=== PATIENT | female | born 1960 | race African-American/Black ===

== ENCOUNTER 2016-08-14 14:35 | Emergency (ER) | payer OTHER ==
[2016-08-14 14:58] VITALS: TEMP 98.8; BMI 25.9
[2016-08-14 17:05] LABS: URINE APPEARANCE CLEAR; URINE BILIRUBIN NEGATIVE (NEGATIVE); URINE BLOOD NEGATIVE (NEGATIVE); URINE COLOR LTYELLOW; URINE GLUCOSE (UA) 3+ (NEGATIVE); URINE KETONE TRACE (NEGATIVE); URINE LEUK ESTERASE NEGATIVE (NEGATIVE); URINE NITRITE NEGATIVE (NEGATIVE); URINE PROTEIN NEGATIVE (NEGATIVE); URINE UROBILINOGEN NEGATIVE E.U./dl (0.2-1.0)
[2016-08-14 17:08] LABS: BASOPHIL 0.6 % (0-2.0); EOSINOPHIL 1.1 % (0-4.5); MCHC 33.5 g/dl (32.0-36.0); MEAN CELL VOLUME 83.4 fl (80-96); MEAN PLT VOLUME 9.3 fl (7.5-11.1); NEUTROPHILS 58.6 % (42.8-82.8); PLATELET COUNT 297 K/MM3 (134-434); RDW 13.1 % (11.6-15.6); WHITE BLOOD COUNT 8.8 K/mm3 (4.0-10.0)
[2016-08-14 17:40] LABS: ANION GAP 11 (8-16); CALCIUM 9.8 mg/dL (8.5-10.1); CO2 29 mmol/L (21-32); COCKROFT - GAULT 87.8135; CREATININE 0.6 mg/dL (0.55-1.02); GLUCOSE,RANDOM 200 mg/dL (74-106); SGOT/AST 11 U/L (15-37); SGPT/ALT 23 U/L (12-78)
[2016-08-14 17:44] LABS: ALK PHOS 94 U/L (45-117); BILIRUBIN,TOTAL 0.5 mg/dL (0.2-1.0); TOT PROT 7.8 g/dl (6.4-8.2); TROPONIN I < 0.02 ng/ml (0.00-0.05)
[2016-08-14] MEDS ORDERED: SODIUM CHLORIDE 1,000 ML IV SCH (18:00)
[2016-08-14] MEDS ORDERED: hydrALAZINE HCL 20 MG/ML VIAL IVPUSH ONE (18:16)
[2016-08-14] MEDS ORDERED: hydrALAZINE HCL 20 MG/ML VIAL ONE (18:21)
--- NOTE | 2016-08-14 18:57 | PDOC ---
History of Present Illness <Chloe Tuttle - Last Filed: 08/14/16 22:40> - General History Source: Patient Exam Limitations: No Limitations - History of Present Illness Initial Comments: 08/14/16 19:13 Chief complaint: Dizziness since yesterday out of meds for one month History of present illness: Patient is a 56-year-old female with history of non- insulin-dependent diabetes, hypertension, hyperlipidemia here today complaining of dizziness that started yesterday and continues today. Pt. also had headache yesterday, none today. Patient reports that today she noticed that her right foot was not " not working as usual and I couldn't write my name as I usually could". Pt strength in rt. hand to open things or write. Pt. denies any dysphagia, facial drooping.Pt. also has been ataxic, " reports here "drifting not walking straight". Pt. is speaking clearly, denies headache, visual changes, dyphagia, difficulty speaking, no shortness of breath or abdominal pain. noticed her leaning to the rt. when trying to get dressed today. Pt. does not have any facial drooping, no asymetry of face, decreased ability to chew foods. reports that she has lost a lot of weight in last few months inspite of eating, he also has noted her to be forgetful. Pt. has not taken her medications for one month due to insurance issues. Pt. denies any falls. Pt. initally did not know the year when asked second time was correct, oriented to place. Pt. is urinating as usual. 08/14/16 19:44 08/14/16 19:53 08/14/16 20:09 08/17/16 16:13 Timing/Duration: constant, intermittent (since yesterday ) Severity: mild Associated Symptoms: reports: weakness (rt. lower leg/foot), other ( forgetfulness for a few months per ). denies: headaches, loss of appetite, shortness of breath <Renee Olmstead - Last Filed: 08/17/16 16:15> - General Chief Complaint: Lightheaded Stated Complaint: DIZZINESS Time Seen by Provider: 08/14/16 17:34 Past History <Chloe Tuttle - Last Filed: 08/14/16 22:40> - Past Medical History Diabetes: Yes (NIDDM) HTN: Yes Other medical history: hyperlipidemia - Psycho/Social/Smoking Cessation Hx Anxiety: No Suicidal Ideation: No Smoking History: Never smoked Have you smoked in the past 12 months: No Information on smoking cessation initiated: No Hx Alcohol Use: No Drug/Substance Use Hx: No Substance Use Type: None <Renee Olmstead - Last Filed: 08/17/16 16:15> - Past Medical History Allergies/Adverse Reactions: Allergies Allergy/AdvReac Type Severity Reaction Status Date / Time No Known Allergies Allergy Verified 08/14/16 14:54 Home Medications: Ambulatory Orders Glipizide [Glipizide ER] 10 mg PO DAILY 10/23/14 Ibuprofen [Motrin] 600 mg PO TID #20 tablet 10/23/14 Metformin HCl [Metformin HCl ER] 1,000 mg PO DAILY 10/23/14 Montelukast Na [Singulair -] 10 mg PO HS 10/23/14 Simvastatin [Zocor -] 20 mg PO DAILY 10/23/14 Sitagliptin Phosphate [Januvia -] 100 mg PO DAILY 10/23/14 Hydrochlorothiazide [Hctz -] 25 mg PO DAILY #30 tablet 08/15/16 Review of Systems - Review of Systems Able to Perform ROS?: Yes Constitutional: Yes: Weakness (rt. lower leg/foot since today) HEENTM: No: Symptoms Reported Respiratory: No: Symptoms reported Cardiac (ROS): No: Symptoms Reported ABD/GI: No: Symptoms Reported : Yes: Symptoms Reported Musculoskeletal: No: Symptoms Reported Integumentary: No: Symptoms Reported Neurological: Yes: Tingling (rt. side of face today), Weakness (rt. leg/foot), Dizziness (since yesterday). No: Unsteady Gait, Ataxia <Renee Olmstead - Last Filed: 08/17/16 16:15> *Physical Exam - Vital Signs Last Vital Signs Temp Pulse Resp BP Pulse Ox 98.8 F 93 H 21 130/81 98 08/14/16 14:54 08/14/16 22:33 08/14/16 22:33 08/14/16 22:33 08/14/16 22:33 <Chloe Tuttle - Last Filed: 08/14/16 22:40> - Vital Signs Last Vital Signs Temp Pulse Resp BP Pulse Ox 98.8 F 100 H 20 190/95 100 08/14/16 14:54 08/14/16 18:16 08/14/16 18:16 08/14/16 18:16 08/14/16 18:16 - Physical Exam General Appearance: Yes: Appropriately Dressed HEENT: positive: EOMI, LESLIE, TMs Normal, Other (no gag reflex (with tongue blade touching posterior tongue area) ). negative: Pharyngeal Erythema, Tonsillar Exudate, Tonsillar Erythema, Nasal Congestion, Rhinorrhea, Excessive drooling Neck: negative: Lymphadenopathy (R), Lymphadenopathy (L) Respiratory/Chest: positive: Lungs Clear, Normal Breath Sounds. negative: Chest Tender, Respiratory Distress Cardiovascular: positive: Regular Rhythm, Regular Rate, S1, S2 Vascular Pulses: Dorsalis-Pedis (R): 4+ Extremity: positive: Normal Capillary Refill, Normal Inspection. negative: Normal Range of Motion (rt. foot unable to dorsiflex and hyperextend as quickly as left side ), Swelling Integumentary: positive: Normal Color Neurologic: positive: field instructor II-XII NML intact, Alert, Normal Response, Respond to painful stimul (b/l legs ), Finger to Nose, Other (cranial nerves grossly intact except for (no gag reflex noted with tongue blade touching back of throat , b/l hand concrete rod buster equal, negative romberg). negative: Fully Oriented (oriented to day not date, year and place), Motor Strength 5/5 (rt. foot/leg), Responsive , EOM Palsy, Facial Droop, Numbness, Sensory Deficit Deep Tendon Reflexes: Ankle (L): 3+, Ankle (R): 3+, Knee (L): 3+, Knee (R): 3+ <Renee Olmstead - Last Filed: 08/17/16 16:15> ED Treatment Course - LABORATORY CBC & Chemistry Diagram: 08/14/16 16:40 08/14/16 16:40 - ADDITIONAL ORDERS Additional order review: Laboratory Results 08/14/16 08/14/16 17:00 16:40 Sodium 136 Potassium 4.2 Chloride 96 L Carbon Dioxide 29 Anion Gap 11 BUN 19 H Creatinine 0.6 Creat Clearance w eGFR > 60 Random Glucose 200 H D Calcium 9.8 Total Bilirubin 0.5 D AST 11 L D ALT 23 Alkaline Phosphatase 94 D Creatine Kinase 38 Troponin I < 0.02 Total Protein 7.8 Albumin 4.0 Urine Color Ltyellow Urine Appearance Clear Urine pH 6.0 Ur Specific [place] 1.021 Urine Protein Negative Urine Glucose (UA) 3+ H Urine Ketones Trace H Urine Blood Negative Urine Nitrite Negative Urine Bilirubin Negative Urine Urobilinogen Negative Ur Leukocyte Esterase Negative 08/14/16 16:40 RBC 5.59 H MCV 83.4 MCHC 33.5 RDW 13.1 MPV 9.3 Neutrophils % 58.6 D Lymphocytes % 35.5 Monocytes % 4.2 Eosinophils % 1.1 Basophils % 0.6 - Medications Given in the ED: ED Medications Discontinued Medications Generic Name Dose Route Start Last Admin Trade Name Freq PRN Reason Stop Dose Admin Hydralazine HCl 10 mg 08/14/16 18:16 08/14/16 18:21 Apresoline Injection - IVPUSH 08/14/16 18:17 10 mg ONCE ONE Administration Labetalol HCl 20 mg 08/14/16 20:42 08/14/16 21:03 Normodyne Injection - IVPUSH 08/14/16 20:43 20 mg ONCE ONE Administration <Chloe Tuttle D - Last Filed: 08/14/16 22:40> - LABORATORY CBC & Chemistry Diagram: 08/14/16 16:40 08/14/16 16:40 - ADDITIONAL ORDERS Additional order review: Laboratory Results 08/14/16 08/14/16 17:00 16:40 Sodium 136 Potassium 4.2 Chloride 96 L Carbon Dioxide 29 Anion Gap 11 BUN 19 H Creatinine 0.6 Creat Clearance w eGFR > 60 Random Glucose 200 H D Calcium 9.8 Total Bilirubin 0.5 D AST 11 L D ALT 23 Alkaline Phosphatase 94 D Creatine Kinase 38 Troponin I < 0.02 Total Protein 7.8 Albumin 4.0 Urine Color Ltyellow Urine Appearance Clear Urine pH 6.0 Ur Specific [place] 1.021 Urine Protein Negative Urine Glucose (UA) 3+ H Urine Ketones Trace H Urine Blood Negative Urine Nitrite Negative Urine Bilirubin Negative Urine Urobilinogen Negative Ur Leukocyte Esterase Negative 08/14/16 16:40 RBC 5.59 H MCV 83.4 MCHC 33.5 RDW 13.1 MPV 9.3 Neutrophils % 58.6 D Lymphocytes % 35.5 Monocytes % 4.2 Eosinophils % 1.1 Basophils % 0.6 - RADIOLOGY Radiology Studies Ordered: Category Date Time Status HEAD CT WITHOUT CONTRAST [CT] Stat CT Scan 08/14/16 18:15 Taken - Medications Given in the ED: ED Medications Discontinued Medications Generic Name Dose Route Start Last Admin Trade Name Ulisses PRN Reason Stop Dose Admin Hydralazine HCl 10 mg 08/14/16 18:16 08/14/16 18:21 Apresoline Injection - IVPUSH 08/14/16 18:17 10 mg ONCE ONE Administration <Renee Olmstead - Last Filed: 08/17/16 16:15> Medical Decision Making - Medical Decision Making 08/14/16 22:41 PATIENT B/P 128/72 AT 2130, THEN 130/82 AT 2241. PATIENT CP, ABD PAIN, BACK PAIN , N/V/D, BLURRED VISION, DOUBLE VISION. CT- HEAD NEG, CXR- NEG. LAB WNL. PLAN: D/C HOME W/ F/U PCP. <Chloe Tuttle - Last Filed: 08/14/16 22:40> - Medical Decision Making Patient is a 56-year-old female with history of [id number] diabetes, hypertension, hyperlipidemia here today complaining of dizziness that started yesterday and continues today. Pt also had headache yesterday. Patient reports that today she noticed that her right foot was not " not working as usual and I couldn't write my name as I usually could". Pt strength in rt. hand to open things or write. Pt. denies any dysphagia, facial drooping.Pt. also has been ataxic, " reports here "drifting not walking straight". Pt. is speaking clearly, denies headache, visual changes, dyphagia, difficulty speaking, no shortness of breath, chest pain or abdominal pain. noticed her leaning to the rt. when trying to get dressed today. Pt. does not have any facial drooping, no asymetry of face, decreased ability to chew foods. reports that she has lost a lot of weight in last few months inspite of eating, he also has noted her to be forgetful. Pt. has not taken her medications for one month due to insurance issues. Pt. denies any falls, however feels as if she is off balance and will fall since yesterday. Pt denies headache today. Pt. is urinating as usual. 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 anterior frontal perivertricular white matter along superior margin of the rt. caudate head as well as in the left periventricular white matter along superior margin of the left basal ganglion. correlete clinically to determine further evaluation and follow up per Dr. Zheng ( results were answered after pt. signed out to Alycia Tuttle u/a chest Xray PA/lateral negative for infiltrate NIH stroke scale done 08/14/16 18:57 pt signed out to Alycia Tuttle [employer] Laboratory Tests 08/14/16 08/14/16 08/14/16 16:40 16:40 17:00 WBC 8.8 RBC 5.59 H Hgb 15.6 H D Hct 46.6 H MCV 83.4 MCHC 33.5 RDW 13.1 Plt Count 297 MPV 9.3 Neutrophils % 58.6 D Lymphocytes % 35.5 Monocytes % 4.2 Eosinophils % 1.1 Basophils % 0.6 Sodium 136 Potassium 4.2 Chloride 96 L Carbon Dioxide 29 Anion Gap 11 BUN 19 H Creatinine 0.6 Creat Clearance w eGFR > 60 Random Glucose 200 H D Calcium 9.8 Total Bilirubin 0.5 D AST 11 L D ALT 23 Alkaline Phosphatase 94 D Creatine Kinase 38 Troponin I < 0.02 Total Protein 7.8 Albumin 4.0 Urine Color Ltyellow Urine Appearance Clear Urine pH 6.0 Ur Specific [place] 1.021 Urine Protein Negative Urine Glucose (UA) 3+ H Urine Ketones Trace H Urine Blood Negative Urine Nitrite Negative Urine Bilirubin Negative Urine Urobilinogen Negative Ur Leukocyte Esterase Negative 08/14/16 19:57 08/14/16 20:01 08/14/16 20:25 08/14/16 20:26 08/17/16 16:11 08/17/16 16:12 08/17/16 16:14 <Renee Olmstead - Last Filed: 08/17/16 16:15> *DC/Admit/Observation/Transfer - Discharge Dispostion Admit: No <Chloe Tuttle - Last Filed: 08/14/16 22:40> <Renee Olmstead - Last Filed: 08/17/16 16:15> Diagnosis at time of Disposition: Hypertensive urgency Headache Qualifiers: Headache type: other vascular headache Qualified Code(s): G44.1 - Vascular headache, not elsewhere classified - Discharge Dispostion Disposition: HOME Condition at time of disposition: Improved - Prescriptions Prescriptions: Hydrochlorothiazide [Hctz -] 25 mg PO DAILY #30 tablet - Referrals Referrals: Bre Cruz MD [Primary Care Provider] - - Patient Instructions Printed Discharge Instructions: High Blood Pressure, DI for Headache Additional Instructions: FOLLOW UP WITH DR. CRUZ WITHIN 3-5 DAYS. CALL TO SCHEDULE APPOINTMENT. CONTINUE YOUR CURRENT MEDICATIONS. RETURN IF SYMPTOMS WORSEN OR ANY CONCERNS FOR FURTHER EVALUATION. - Post Discharge Activity Work/School Note: Back to Work
--- NOTE | 2016-08-14 20:15 | PDOC ---
NIH Stroke Scale - Last Known Well Date/Time & Onset Date Last Known Well: 08/12/16 ( reports her being forgetful for months ) - Initial Evaluation Level of consciousness: Alert Ask patient the month and their age: Answers one correctly Ask patient to open & close eyes; make fist and let go: Obeys both correctly Best gaze (horizontal eye movement): Normal Visual field testing: No visual field loss Facial paresis (Show teeth/raise eyebrows/close eyes tight): Normal symmetrical movement Motor Function: Left Arm: Normal Motor Function: Right Arm: Normal (extends arm 90 (or 45) degrees for 10 seconds without drift Motor Function: Left Leg: Normal (extends leg 30 degrees for 5 seconds without drift) Motor Function: Right Leg: Normal (extends leg 30 degrees for 5 seconds without drift) Limb Ataxia: Present in one limb Sensory(Use pinprick test arms,legs,trunk,face/side to side): Normal Best language (Describe picture, name items, read sentences): No Aphasia Dysarthria (read several words): Normal articulation Extinction and Inattention: No abnormality - Total Score NIH Stroke Scale Score: 2
[2016-08-14] MEDS ORDERED: LABETALOL HCL 5 MG/1 ML (100MG/20 ML VIAL) IVPUSH ONE (20:42)
[2016-08-14] MEDS ORDERED: LABETALOL HCL 5 MG/1 ML (200MG/40ML VIAL) IVPB ONE (20:57)
[2016-08-14 22:34] VITALS: BP 130/81; PULSE 93
--- NOTE | 2016-08-15 16:20 | EKG ---
Test Reason : Blood Pressure : / mmHG Vent. Rate : 092 BPM Atrial Rate : 092 BPM P-R Int : 156 ms QRS Dur : 066 ms QT Int : 354 ms P-R-T Axes : 056 012 054 degrees QTc Int : 437 ms NORMAL SINUS RHYTHM ANTERIOR INFARCT , AGE UNDETERMINED ABNORMAL ECG WHEN COMPARED WITH ECG OF 23-OCT-2014 19:59, NO SIGNIFICANT CHANGE WAS FOUND Confirmed by RANDA MALDONADO MD ([id number]) on 08/15/2016 4:20:16 PM Referred By: Confirmed By:RANDA MALDONADO MD
== END 2016-08-14 22:59 | disposition home or self-care (01) ==
LOC: JER 14:35
PROC: 3E0337Z Introduction of Electrolytic and Water Balance Substance into Peripheral Vein, Percutaneous Approach (ICD-10-PCS; principal; 2016-08-14)
PROC: 3E033KZ Introduction of Other Diagnostic Substance into Peripheral Vein, Percutaneous Approach (ICD-10-PCS; 2016-08-14)
DX: I16.0 Hypertensive urgency (principal); E11.9 Type 2 diabetes mellitus without complications; Z79.84 Long term (current) use of oral hypoglycemic drugs; E78.5 Hyperlipidemia, unspecified
CPT/HCPCS: 36415; 70450-TC; 71010-TC; 80053; 81003; 82550; 84484; 85025; 93005; 93010; 99284-25

== ENCOUNTER 2016-08-24 13:25 | Emergency (ER) | payer OTHER ==
[2016-08-24 13:32] VITALS: BMI 25.3
[2016-08-24] MEDS ORDERED: IBUPROFEN 600 MG TABLET (FP) PO ONE ×2 (14:32→15:00)
--- NOTE | 2016-08-24 14:39 | PDOC ---
[id number] No Limitations - History of Present Illness Initial Comments: 08/24/16 14:40 The patient is a 56 year old female with a significant past medical history of diabetes, hypertension, and hyperlipidemia who presents to the Emergency Department with left rib pain for two days. The patient was gardening when she had a mechanical fall and landed on her left side. She reports she has SOB due to pain. She did not take anything for her pain. She denies fever, chills, nausea, vomiting, diarrhea, and constipation.The patient denies dysuria, frequency, urgency, and hematuria. <Roseann Feldman - Last Filed: 08/24/16 14:40> - General History Source: Patient Exam Limitations: No Limitations <Lance Farfan - Last Filed: 08/31/16 11:29> - General Chief Complaint: Pain Stated Complaint: ABD PAIN Time Seen by Provider: 08/24/16 13:50 Past History <Roseann Feldman - Last Filed: 08/24/16 14:40> - Past Medical History Diabetes: Yes (NIDDM) HTN: Yes Hypercholesterolemia: Yes - Psycho/Social/Smoking Cessation Hx Anxiety: No Suicidal Ideation: No Smoking History: Never smoked Have you smoked in the past 12 months: No Information on smoking cessation initiated: No Hx Alcohol Use: No Drug/Substance Use Hx: No Substance Use Type: None <Lance Farfan - Last Filed: 08/31/16 11:29> - Past Medical History Allergies/Adverse Reactions: Allergies Allergy/AdvReac Type Severity Reaction Status Date / Time No Known Allergies Allergy Verified 08/24/16 13:32 Home Medications: Ambulatory Orders Glipizide [Glipizide ER] 10 mg PO DAILY 10/23/14 Metformin HCl [Metformin HCl ER] 1,000 mg PO DAILY 10/23/14 Montelukast Na [Singulair -] 10 mg PO HS 10/23/14 Simvastatin [Zocor -] 20 mg PO DAILY 10/23/14 Sitagliptin Phosphate [Januvia -] 100 mg PO DAILY 10/23/14 Hydrochlorothiazide [Hctz -] 25 mg PO DAILY #30 tablet 08/15/16 Review of Systems - Review of Systems Able to Perform ROS?: Yes Comments:: 08/24/16 14:41 GENERAL/CONSTITUTIONAL: No fever or chills. No weakness. HEAD, EYES, EARS, NOSE AND THROAT: No change in vision. No ear pain or discharge. No sore throat. CARDIOVASCULAR: (+) shortness of breath. No chest pain RESPIRATORY: No cough, wheezing, or hemoptysis. GASTROINTESTINAL: No nausea, vomiting, diarrhea or constipation. GENITOURINARY: No dysuria, frequency, or change in urination. MUSCULOSKELETAL: (+) left rib pain. No joint or muscle swelling or pain. No neck or back pain. SKIN: No rash NEUROLOGIC: No headache, vertigo, loss of consciousness, or change in strength/ sensation. ENDOCRINE: No increased thirst. No abnormal weight change. HEMATOLOGIC/LYMPHATIC: No anemia, easy bleeding, or history of blood clots. ALLERGIC/IMMUNOLOGIC: No hives or skin allergy. <Roseann Feldman - Last Filed: 08/24/16 14:40> *Physical Exam - Vital Signs Last Vital Signs Temp Pulse Resp BP Pulse Ox 98.8 F 120 H 18 153/52 97 08/24/16 13:28 08/24/16 13:28 08/24/16 13:28 08/24/16 13:28 08/24/16 13:28 - Physical Exam Comments: 08/24/16 14:41 GENERAL: Awake, alert, and fully oriented, in no acute distress HEAD: No signs of trauma EYES: PERRLA, EOMI, sclera anicteric, conjunctiva clear ENT: Auricles normal inspection, hearing grossly normal, nares patent, oropharynx clear without exudates. Moist mucosa NECK: Normal ROM, supple, no lymphadenopathy, JVD, or masses LUNGS: Breath sounds equal, clear to auscultation bilaterally. No wheezes, and no crackles CHEST: Tenderness to left ribs 5 and 6. No sternal tenderness. No flail chest. HEART: Regular rate and rhythm, normal S1 and S2, no murmurs, rubs or gallops ABDOMEN: Soft, nontender, normoactive bowel sounds. No guarding, no rebound. No masses EXTREMITIES: Normal range of motion, no edema. No clubbing or cyanosis. No cords, erythema, or tenderness NEUROLOGICAL: Cranial nerves II through XII grossly intact. Normal speech, normal gait SKIN: Warm, Dry, normal turgor, no rashes or lesions noted. <Roseann Feldman - Last Filed: 08/24/16 14:40> - Vital Signs Last Vital Signs Temp Pulse Resp BP Pulse Ox 98.8 F 120 H 18 153/52 97 08/24/16 13:28 08/24/16 13:28 08/24/16 13:28 08/24/16 13:28 08/24/16 13:28 <Lance Farfan - Last Filed: 08/31/16 11:29> Heart Score/ECG Review #1 ECG reviewed & interpreted by me at: 14:45 08/24/16 14:48 NSr 117, no std/arely, normal axis, normal intervals, QTC 443 msec <Lance Farfan - Last Filed: 08/31/16 11:29> ED Treatment Course - LABORATORY CBC & Chemistry Diagram: 08/24/16 17:25 08/24/16 17:25 - RADIOLOGY Radiology Studies Ordered: Category Date Time Status CHEST PA & LAT [RAD] Stat Radiology 08/24/16 14:32 Ordered RIBS-LEFT SIDE [RAD] Stat Radiology 08/24/16 14:32 Ordered <Lance Farfan - Last Filed: 08/31/16 11:29> Medical Decision Making - Medical Decision Making 08/24/16 14:37 A portion of this note was documented by scribe services under my direction. I have reviewed the details of the note, within reason, and agree with the documentation with the following case summary and management plan written by me. Patient treated in the ED. Nursing notes are reviewed and incorporated into the medical decision-making. Vital signs reviewed. Peripheral IV access obtained by the nurse, laboratory studies are drawn and sent, reviewed and interpreted by myself. Vital Signs Temp Pulse Resp BP Pulse Ox 98.8 F 120 H 18 153/52 97 08/24/16 13:28 08/24/16 13:28 08/24/16 13:28 08/24/16 13:28 08/24/16 13:28 56-year-old female history of hypertension, diabetes presents with left anterior ribs pain status post fall 2 days ago. Patient was gardening when she had a mechanical fall and on her left ribs. Been complaining about left anterior fifth and sixth rib pains. There appears to be no obvious fall chest but will need left ribs and chest x-ray to rule out fractures. Pain is worsened with palpation deep movements. 08/24/16 18:28 Chest xray reviewed. No acute findings or fractures. CBC, BMP 08/24/16 17:25 08/24/16 17:25 CMP Sodium 137 mmol/L (136-145) 08/24/16 17:25 Potassium 3.6 mmol/L (3.5-5.1) 08/24/16 17:25 Chloride 99 mmol/L (98-107) 08/24/16 17:25 Carbon Dioxide 25 mmol/L (21-32) 08/24/16 17:25 Anion Gap 13 (8-16) 08/24/16 17:25 BUN 14 mg/dL (7-18) D 08/24/16 17:25 Creatinine 0.8 mg/dL (0.55-1.02) D 08/24/16 17:25 Creat Clearance w eGFR > 60 (>60) 08/24/16 17:25 Random Glucose 154 mg/dL (74-106) H D 08/24/16 17:25 Calcium 8.8 mg/dL (8.5-10.1) 08/24/16 17:25 Total Bilirubin 0.4 mg/dL (0.2-1.0) 08/24/16 17:25 AST 13 U/L (15-37) L 08/24/16 17:25 ALT 19 U/L (12-78) 08/24/16 17:25 Alkaline Phosphatase 80 U/L (45-117) 08/24/16 17:25 Creatine Kinase 48 IU/L (26-192) 08/24/16 17:25 Troponin I < 0.02 ng/ml (0.00-0.05) 08/24/16 17:25 Total Protein 6.7 g/dl (6.4-8.2) 08/24/16 17:25 Albumin 3.4 g/dl (3.4-5.0) 08/24/16 17:25 However the patient continues to have significant pain. Will obtain a CT chest. If workup negative, NSAIDs, percocets, incentive spirometer and follow up with PMD for rib contusions. 08/24/16 18:57 Case signed out to oncoming ED attending DR. Hamlin for further management and disposition. <Lance Farfan - Last Filed: 08/31/16 11:29> *DC/Admit/Observation/Transfer - Attestations Scribe Attestion: 08/24/16 14:41 Documentation prepared by Roseann Feldman, acting as medical staff credentialing coordinator for Lance Farfan MD. <Roseann Feldman - Last Filed: 08/24/16 14:40> <Lance Farfan - Last Filed: 08/31/16 11:29> Diagnosis at time of Disposition: Chest wall contusion - Discharge Dispostion Disposition: HOME Condition at time of disposition: Good - Referrals Referrals: Bre Cruz MD [Primary Care Provider] - - Patient Instructions Additional Instructions: Please follow up with your PMD within the next 48 hours for reevaluation and if there is any change otherwise in your symptoms, please return immediately to the ED. It is in your best interest to use the incentive spirometer as often as possible.
[2016-08-24] MEDS ORDERED: OXYCODONE/APAP 5/325MG COMBO TABLET PO ONE (14:47)
[2016-08-24] MEDS ORDERED: OXYCODONE/APAP 5/325MG COMBO TABLET ONE (15:00)
[2016-08-24] MEDS ORDERED: morphine CARPU-JECT 4 MG/1 ML DISP.SYRIN IVPUSH ONE (16:25)
[2016-08-24] MEDS ORDERED: morphine CARPU-JECT 4 MG/1 ML DISP.SYRIN ONE (17:30)
[2016-08-24 17:42] LABS: BASOPHIL 0.6 % (0-2.0); EOSINOPHIL 0.4 % (0-4.5); MCH 27.6 pg (25.7-33.7); MCHC 33.4 g/dl (32.0-36.0); MEAN CELL VOLUME 82.5 fl (80-96); MEAN PLT VOLUME 8.8 fl (7.5-11.1); NEUTROPHILS 75.2 % (42.8-82.8); PLATELET COUNT 265 K/MM3 (134-434); RDW 12.9 % (11.6-15.6); WHITE BLOOD COUNT 13.4 K/mm3 (4.0-10.0)
[2016-08-24 17:47] LABS: INR 1.14 (0.82-1.09); PROTHROMBIN TIME (PATIENT) 12.6 SEC (9.98-11.88)
[2016-08-24 17:49] LABS: ACTIVATED PTT 36.1 SECONDS (26.9-34.4)
[2016-08-24 18:11] LABS: ALBUMIN 3.4 g/dl (3.4-5.0); ANION GAP 13 (8-16); CALCIUM 8.8 mg/dL (8.5-10.1); CO2 25 mmol/L (21-32); COCKROFT - GAULT 64.175; CREATININE 0.8 mg/dL (0.55-1.02); GLUCOSE,RANDOM 154 mg/dL (74-106); SGOT/AST 13 U/L (15-37); SGPT/ALT 19 U/L (12-78)
[2016-08-24 18:15] LABS: ALK PHOS 80 U/L (45-117); BILIRUBIN,TOTAL 0.4 mg/dL (0.2-1.0); TOT PROT 6.7 g/dl (6.4-8.2); TROPONIN I < 0.02 ng/ml (0.00-0.05)
--- NOTE | 2016-08-24 20:09 | PDOC ---
*Physical Exam - Vital Signs Last Vital Signs Temp Pulse Resp BP Pulse Ox 99 F 98 H 17 110/71 95 08/24/16 17:25 08/24/16 17:25 08/24/16 17:25 08/24/16 17:25 08/24/16 17:25 ED Treatment Course - LABORATORY CBC & Chemistry Diagram: 08/24/16 17:25 08/24/16 17:25 - ADDITIONAL ORDERS Additional order review: Laboratory Results 08/24/16 08/24/16 17:25 17:25 INR 1.14 PTT (Actin FS) 36.1 H Sodium 137 Potassium 3.6 Chloride 99 Carbon Dioxide 25 Anion Gap 13 BUN 14 D Creatinine 0.8 D Creat Clearance w eGFR > 60 Random Glucose 154 H D Calcium 8.8 Total Bilirubin 0.4 AST 13 L ALT 19 Alkaline Phosphatase 80 Creatine Kinase 48 Troponin I < 0.02 Total Protein 6.7 Albumin 3.4 08/24/16 17:25 RBC 4.85 MCV 82.5 MCHC 33.4 RDW 12.9 MPV 8.8 Neutrophils % 75.2 D Lymphocytes % 17.3 D Monocytes % 6.5 Eosinophils % 0.4 Basophils % 0.6 - Medications Given in the ED: ED Medications Discontinued Medications Generic Name Dose Route Start Last Admin Trade Name Freq PRN Reason Stop Dose Admin Ibuprofen 600 mg 08/24/16 14:32 08/24/16 15:02 Motrin - PO 08/24/16 14:33 600 mg ONCE ONE Administration Morphine Sulfate 4 mg 08/24/16 16:25 08/24/16 17:20 Morphine Injection - IVPUSH 08/24/16 16:26 4 mg ONCE ONE Administration Oxycodone/Acetaminophen 1 combo 08/24/16 14:47 08/24/16 15:02 Percocet 5/325 - PO 08/24/16 14:48 1 combo ONCE ONE Administration Medical Decision Making - Medical Decision Making 08/24/16 20:08 The patient is received on sign out, no issues; She is discharged with negative CT chest. *DC/Admit/Observation/Transfer Diagnosis at time of Disposition: Chest wall contusion Qualifiers: Encounter type: initial encounter Laterality: unspecified laterality Qualified Code(s): S20.219A - Contusion of unspecified front wall of thorax, initial encounter - Discharge Dispostion Disposition: HOME Condition at time of disposition: Good Admit: No Decision to Admit order Date/Time: 08/24/16 20:07 - Referrals Referrals: Bre Cruz MD [Primary Care Provider] - - Patient Instructions Additional Instructions: Please follow up with your PMD within the next 48 hours for reevaluation and if there is any change otherwise in your symptoms, please return immediately to the ED. It is in your best interest to use the incentive spirometer as often as possible. - Post Discharge Activity
[2016-08-25 03:33] VITALS: BP 120/78; PULSE 82; TEMP 98.5
--- NOTE | 2016-08-25 12:53 | EKG ---
Test Reason : Blood Pressure : / mmHG Vent. Rate : 117 BPM Atrial Rate : 117 BPM P-R Int : 156 ms QRS Dur : 078 ms QT Int : 318 ms P-R-T Axes : 056 022 053 degrees QTc Int : 443 ms SINUS TACHYCARDIA POSSIBLE LEFT ATRIAL ENLARGEMENT POOR R WAVE PROGRESSION ABNORMAL ECG WHEN COMPARED WITH ECG OF 14-AUG-2016 17:19, NO SIGNIFICANT CHANGE WAS FOUND BASELINE ARTIFACT Confirmed by GEOVANNI MOJICA, DEBO ([id number]) on 08/25/2016 12:53:01 PM Referred By: Confirmed By:DEBO GALARZA MD
== END 2016-08-24 20:34 | disposition home or self-care (01) ==
LOC: JER 13:25
PROC: 3E033NZ Introduction of Analgesics, Hypnotics, Sedatives into Peripheral Vein, Percutaneous Approach (ICD-10-PCS; principal; 2016-08-24)
DX: S20.212A Contusion of left front wall of thorax, initial encounter (principal); W18.39XA Other fall on same level, initial encounter; Y93.H2 Activity, gardening and landscaping; Y92.017 Garden or yard in single-family (private) house as the place of occurrence of the external cause; I10 Essential (primary) hypertension; E11.9 Type 2 diabetes mellitus without complications; Z79.84 Long term (current) use of oral hypoglycemic drugs; E78.00 Pure hypercholesterolemia, unspecified
CPT/HCPCS: 36415; 71020-TC; 71101-TC; 71275-TC; 80053; 82550; 84484; 85025; 85610; 85730; 93005; 93010; 99284-25

== ENCOUNTER 2018-05-18 09:01 | Emergency (ER) | payer OTHER ==
[2018-05-18 09:09] VITALS: TEMP 98.1; BMI 28.1
--- NOTE | 2018-05-18 09:21 | PDOC ---
History of Present Illness - General History Source: Patient Exam Limitations: No Limitations - History of Present Illness Initial Comments: 05/18/18 10:20 The patient is a 58 year old female, with a significant past medical history of [id number] diabetes, hypertension, hyperlipidemia, who presents to the emergency department with sudden onset of neck, and tongue swelling at 1AM this morning and intermittent left sided chest pain that started yesterday. She states she noticed the area just under her chin was swollen and painful. She states her tongue was swollen and she could not close her mouth. She reportedly took benadryl around 2AM which offered mild relief of the swelling to her tongue , however, no significant decrease in swelling or pain to her anterior neck. She reports an associated diffuse headache and dizziness. She also reports pain to her left anterior chest which is localized, intermittent, associated with mild shortness of breath, and without any alleviating or exacerbating factors. She denies taking any new medications or eating new foods. She denies any trauma or exertional activity. She reports her neck pain as 8/10, whereas, her chest pain is rated as 0/10 at this time, only with palpation. Secondarily, she states she was taking lisinopril in the past, however, denies taking this medication for at least 3 months (confirmed by pharmacy) since she last checked in with her PMD. She states she had a similar swelling episode which brought to her her PCP office who advised the patient stop taking lisinopril. The patient denies fever, chills, nausea, vomit, diarrhea and constipation. The patient denies dysuria, frequency, urgency and hematuria. Meds: simvastatin 20mg, glipizide ER 10mg, admelog injectable, and amlodipine 5mg. Allergies: NKDA Social history: Pt denies toxic habits PCP - Dr. Odin Oliva <Iman Bellamy - Last Filed: 05/18/18 11:41> - General History Source: Patient Exam Limitations: No Limitations <Jacklyn Hilliard - Last Filed: 05/18/18 12:12> - General Chief Complaint: Edema Stated Complaint: WEAKNESS/SLURRED SPEECH/TONGUE SWELLING Time Seen by Provider: 05/18/18 09:20 Past History <Iman Bellamy - Last Filed: 05/18/18 11:41> - Past Medical History COPD: No Diabetes: Yes (NIDDM) HTN: Yes Hypercholesterolemia: Yes - Immunization History Immunization Up to Date: No - Suicide/Smoking/Psychosocial Hx Smoking History: Never smoked Have you smoked in the past 12 months: No Information on smoking cessation initiated: No Hx Alcohol Use: No Drug/Substance Use Hx: No Substance Use Type: None <Jacklyn Hilliard - Last Filed: 05/18/18 12:12> - Past Medical History Allergies/Adverse Reactions: Allergies Allergy/AdvReac Type Severity Reaction Status Date / Time No Known Allergies Allergy Verified 05/18/18 09:06 Home Medications: Ambulatory Orders Glipizide [Glipizide ER] 10 mg PO DAILY 10/23/14 Metformin HCl [Metformin HCl ER] 1,000 mg PO DAILY 10/23/14 Montelukast Na [Singulair -] 10 mg PO HS 10/23/14 Simvastatin [Zocor -] 20 mg PO DAILY 10/23/14 Sitagliptin Phosphate [Januvia -] 100 mg PO DAILY 10/23/14 Hydrochlorothiazide [Hctz -] 25 mg PO DAILY #30 tablet 08/15/16 Labetalol HCl [Normodyne -] 200 mg PO BID #30 tablet 05/18/18 Review of Systems - Review of Systems Able to Perform ROS?: Yes Comments:: 05/18/18 10:20 GENERAL/CONSTITUTIONAL: No fever or chills. No weakness. no sweats. HEAD, EYES, EARS, NOSE AND THROAT: (+) tongue swelling. No change in vision or hearing. No ear pain or discharge. No sore throat or mouth pain. No difficulty swallowing. No congestion. CARDIOVASCULAR: (+) L chest pain and SOB. No palpitations, syncope or edema. RESPIRATORY: No cough, wheezing, or hemoptysis. GASTROINTESTINAL No nausea/vomiting. No diarrhea or constipation. No bloody stools. GENITOURINARY: No hematuria, dysuria, frequency, urgency or other changes. MUSCULOSKELETAL: (+) anterior neck swelling and pain. No joint or muscle swelling or pain. No back pain. SKIN: No rash or changes in skin color or lesions. NEUROLOGIC: (+) headache, no vertigo, loss of consciousness, or change in strength/sensation. No gait instability. HEMATOLOGIC/LYMPHATIC: No anemia, easy bruising/bleeding, or history of blood clots. ALLERGIC/IMMUNOLOGIC: No allergies All other systems reviewed and negative, or as documented in HPI. <Iman Bellamy - Last Filed: 05/18/18 11:41> *Physical Exam - Vital Signs Last Vital Signs Temp Pulse Resp BP Pulse Ox 98.1 F 123 H 20 173/88 H 100 05/18/18 09:03 05/18/18 09:49 05/18/18 09:49 05/18/18 10:20 05/18/18 09:49 - Physical Exam Comments: 05/18/18 10:20 General: Well appearing, awake and alert, NAD. HEENT: NCAT, PERRL, EOMI, clear conjunctiva, anicteric, moist mucus membranes, clear oropharynx, no oral lesions.. Uvula midline, airway patent, normal phonation. Neck: neck supple, FROM. +enlarged thyroid and soft tissue fullness. No mass palpated. Resp: CTAB, normal and even respirations, no respiratory distress Chest: (+) Reproducible left upper chest wall tenderness on palpation. CVS: (+) Tachycardic. Regular rhythm, no murmurs, 2+ peripheral pulses throughout, no peripheral edema Abdomen: soft, NTND, no rebound or guarding. No CVAT. Back: nontender, normal inspection and ROM MSK: no edema, ALSTON x4, ROM intact. No clubbing or cyanosis. normal bulk and tone. Extremities: no calf tenderness Neuro: alert, oriented appropriately; no focal neurologic deficits Skin: warm and well perfused, cap refill <2 sec, normal color <Iman Bellamy - Last Filed: 05/18/18 11:41> - Vital Signs Last Vital Signs Temp Pulse Resp BP Pulse Ox 98.1 F 120 H 18 205/100 H 98 05/18/18 09:03 05/18/18 09:03 05/18/18 09:03 05/18/18 09:03 05/18/18 09:03 <Jacklyn Hilliard - Last Filed: 05/18/18 12:12> Moderate Sedation - Procedure Monitoring Vital Signs: Procedure Monitoring Vital Signs Temperature 98.1 F 05/18/18 09:03 Pulse Rate 123 H 05/18/18 09:49 Respiratory Rate 20 05/18/18 09:49 Blood Pressure 173/88 H 05/18/18 10:20 O2 Sat by Pulse Oximetry (%) 100 05/18/18 09:49 <Iman Bellamy - Last Filed: 05/18/18 11:41> - Procedure Monitoring Vital Signs: Procedure Monitoring Vital Signs Temperature 98.1 F 05/18/18 09:03 Pulse Rate 120 H 05/18/18 09:03 Respiratory Rate 18 05/18/18 09:03 Blood Pressure 205/100 H 05/18/18 09:03 O2 Sat by Pulse Oximetry (%) 98 05/18/18 09:03 <Jacklyn Hilliard - Last Filed: 05/18/18 12:12> Heart Score/ECG Review - History History: Slightly suspicious - Electrocardiogram EKG: Normal - Age Age: 45-65 - Risk Factors Risk Factors Heart Score: Yes Hx Hypercholesterolemia, Yes Hx Hypertension, Yes Hx Diabetes Based on the list above the patient has:: >/=3 risk factors or Hx atherosclerotic disease - Troponin Troponin: </= normal limit - Score Heart Score - Total: 3 - ECG Impressions Normal ECG: Yes Comment:: 05/18/18 11:26 EKG normal sinus rhythm, no interval abnormalities, narrow QRS, ST and T wave segments and morphology normal. Nonspecific T wave abnormalities <Jacklyn Hilliard - Last Filed: 05/18/18 12:12> ED Treatment Course - LABORATORY CBC & Chemistry Diagram: 05/18/18 10:05 05/18/18 10:05 - Medications Given in the ED: ED Medications Discontinued Medications Generic Name Dose Route Start Last Admin Trade Name Westonq PRN Reason Stop Dose Admin Ibuprofen 600 mg 05/18/18 09:41 05/18/18 10:05 Motrin - PO 05/18/18 09:42 600 mg ONCE ONE Administration <Iman Bellamy - Last Filed: 05/18/18 11:41> - LABORATORY CBC & Chemistry Diagram: 05/18/18 10:05 05/18/18 10:05 <Jacklyn Hilliard - Last Filed: 05/18/18 12:12> Medical Decision Making - Medical Decision Making 05/18/18 11:41 Dr. Odin Oliva was called at the office at this time and the patient's case was discussed. <Iman Bellamy - Last Filed: 05/18/18 11:41> - Medical Decision Making 05/18/18 10:40 I, Jacklyn Hilliard MD, attest that this document has been prepared under my direction and personally reviewed by me in its entirety. I further attest, that it accurately reflects all work, treatment, procedures and medical decision -making performed by me. See HPI for details DDx chest pain: ACS, costochondritis, PUD, esophageal spasm, GERD, gastritis, pneumonia, pleurisy,. HTN urgency/emergency, medication noncompliance, angioedema, allergic reaction, electrolyte/metabolic derangements. Considered but clinically doubt based on HPI and PE: PE or dissection no e/o angioedema or anaphylaxis or airway involvement. no rash. Vital signs reviewed,+hypertensive and tachy, likely from combo med noncompliance and anxiety. otherwise no acute distress Prior notes reviewed, including admissions, discharges and consultations. laboratory results and imaging reviewed, basic labs and lytes wnl, notable for normal TSH so doubt endocrine/thyroid issue. UA_small protein/glucose, correlating with poor diabetes control CXR_unremarkable, no acute pathology Cardiac panel_neg biomarkers. doubt ACS, HEART score in low risk category, one trop sufficient in setting of clinical history EKG normal sinus rhythm, no interval abnormalities, narrow QRS, ST and T wave segments and morphology normal. Nonspecific T wave abnormalities ED course: ibuprofen for suspected costochondritis, reproducible and focal, without radiating factors. BP and HR normalizing, no e/o end organ damage. PMD follow up as outpatient. spoke with primary, Dr Oliva start labetalol BID for HTN management, compliance emphasized. arranged for appt tomorrow Discharge in stable condition pt and family verbalized understanding of impression and plan and instructions 05/18/18 11:58 05/18/18 12:11 05/18/18 12:12 <Jacklyn Hilliard - Last Filed: 05/18/18 12:12> *DC/Admit/Observation/Transfer - Attestations Scribe Attestion: 05/18/18 10:20 Documentation prepared by Iman Bellamy, acting as medical records field technician for Jacklyn Hilliard MD, <Iman Bellamy - Last Filed: 05/18/18 11:41> - Discharge Dispostion Decision to Admit order: No <Jacklyn Hilliard - Last Filed: 05/18/18 12:12> Diagnosis at time of Disposition: Hypertension - Discharge Dispostion Disposition: HOME Condition at time of disposition: Improved - Prescriptions Prescriptions: Labetalol HCl [Normodyne -] 200 mg PO BID #30 tablet - Referrals Referrals: Stan Oliva MD [Staff Physician] - - Patient Instructions Printed Discharge Instructions: The DASH Diet, DI for High Blood Pressure Additional Instructions: your blood work and cardiac enzymes were normal your blood pressure normalized take labetalol twice a day for your blood pressure, very important to control your pressure and glucose in the setting of your symptoms call your doctor today for an appointment this week for reevaluation. if worsening symptoms, return sooner for evaluation, including worsening chest pain, shortness of breath, dehydration, weakness, numbness or tingling or airway changes.
[2018-05-18] MEDS ORDERED: IBUPROFEN 600 MG TABLET (FP) PO ONE (09:41)
[2018-05-18 10:31] LABS: BASO % 0.2 % (0-2.0); EOS % 2.4 % (0-4.5); HEMATOCRIT 42.3 % (32.4-45.2); HEMOGLOBIN 13.8 GM/dL (10.7-15.3); LYMPH % 27.1 % (8-40); MCH 27.1 pg (25.7-33.7); MCHC 32.7 g/dl (32.0-36.0); MEAN CELL VOLUME 82.8 fl (80-96); MEAN PLT VOLUME 8.7 fl (7.5-11.1); MONO % 5.9 % (3.8-10.2); NEUT % 64.4 % (42.8-82.8); PLATELET COUNT 297 K/MM3 (134-434); RBC 5.11 M/mm3 (3.60-5.2); RDW 13.1 % (11.6-15.6); WHITE BLOOD COUNT 7.9 K/mm3 (4.0-10.0)
[2018-05-18 10:50] LABS: URINE APPEARANCE CLEAR; URINE BILIRUBIN NEGATIVE (<2.0 mg/dL); URINE COLOR LTYELLOW; URINE GLUCOSE (UA) 1+ (NEGATIVE); URINE KETONE NEGATIVE (NEGATIVE); URINE LEUK ESTERASE NEGATIVE (NEGATIVE); URINE NITRITE NEGATIVE (NEGATIVE); URINE PROTEIN 1+ (NEGATIVE); URINE UROBILINOGEN NEGATIVE mg/dL (0.2-1.0)
[2018-05-18 11:03] LABS: N-TERMINAL BNP 73.6 pg/ml (5-125)
[2018-05-18 11:08] LABS: ALBUMIN 3.5 g/dl (3.4-5.0); ALK PHOS 84 U/L (45-117); ANION GAP 7 MMOL/L (8-16); BILIRUBIN,TOTAL 0.7 mg/dL (0.2-1); BLOOD UREA NITROGEN 14 mg/dL (7-18); CALCIUM 8.9 mg/dL (8.5-10.1); CHLORIDE 101 mmol/L (98-107); CO2 26 mmol/L (21-32); CREATININE 0.6 mg/dL (0.55-1.3); GLUCOSE,RANDOM 206 mg/dL (74-106); POTASSIUM 3.8 mmol/L (3.5-5.1); SGOT/AST 7 U/L (15-37); SGPT/ALT 18 U/L (13-61); SODIUM 134 mmol/L (136-145); TOT PROT 6.9 g/dl (6.4-8.2)
[2018-05-18 11:15] LABS: EPI CELLS RARE /HPF (FEW); URINE HYALINE CAST 1 /lpf; URINE MUCUS RARE
[2018-05-18] MEDS ORDERED: LABETALOL HCL 200 MG TABLET (FP) PO ONE (11:47)
[2018-05-18 12:00] VITALS: BP 138/74; PULSE 88
--- NOTE | 2018-05-18 15:46 | EKG ---
Test Reason : Blood Pressure : / mmHG Vent. Rate : 108 BPM Atrial Rate : 108 BPM P-R Int : 150 ms QRS Dur : 068 ms QT Int : 340 ms P-R-T Axes : 048 001 061 degrees QTc Int : 455 ms SINUS TACHYCARDIA POSSIBLE LEFT ATRIAL ENLARGEMENT POSSIBLE INFERIOR INFARCT , AGE UNDETERMINED ANTERIOR INFARCT (CITED ON OR BEFORE 18-MAY-2018) ABNORMAL ECG WHEN COMPARED WITH ECG OF 24-AUG-2016 14:43, BORDERLINE CRITERIA FOR INFERIOR INFARCT ARE NOW PRESENT Confirmed by MONSTER MONTANEZ MD ([id number]) on 05/18/2018 3:46:26 PM Referred By: Confirmed By:MONSTER MONTANEZ MD
== END 2018-05-18 12:38 | disposition home or self-care (01) ==
LOC: JER 09:01
DX: I10 Essential (primary) hypertension (principal); E78.00 Pure hypercholesterolemia, unspecified; E11.9 Type 2 diabetes mellitus without complications; Z79.84 Long term (current) use of oral hypoglycemic drugs
CPT/HCPCS: 36415; 71046-TC-FY; 80053; 81003; 81015; 83880; 84443; 84484; 85025; 93005; 93010; 99285-25

== ENCOUNTER 2018-05-18 14:47 | Observation (INO) | payer OTHER ==
--- NOTE | 2018-05-18 15:14 | PDOC ---
History of Present Illness - General Chief Complaint: Syncope/Near Syncope Stated Complaint: WEAKNESS Time Seen by Provider: 05/18/18 15:03 History Source: Patient Exam Limitations: No Limitations - History of Present Illness Initial Comments: Pt is a 58 yo F, with PMH of NIDDM, HTN, and HLD, who is presenting after a pre- syncopal episode, with current complaints of light-headedness. Pt was seen at [facility] this morning, for complaints of tongue swelling/tingling, which she has experienced with lisinopril in the past. In the ER this AM, the pt was given tylenol, and started on 200 mg PO labetalol with urgent PCP follow-up tomorrow. Shortly after the pt was taken home by her son, she had a pre-syncopal episode ( witnessed) in which she almost fell down the stairs in her home, had slurred speech, and seemed to be confused. The pt did not fall or hit her head. The pt ate only a salad today before her second arrival to the ED. Pt denies any recent fevers/chills, headache, vision changes, chest pain, palpitations, SOB, nausea/vomiting, abdominal pain, urinary symptoms, diarrhea/constipation, or leg swelling. Social: Pt denies any cigarette, alcohol, or drug use. Pt denies any recent travel or sick contacts. Surgical: no relevant history. Family: no relevant history. PCP: Dr. Bre Cruz 05/20/18 17:30 Past History - Travel Traveled outside of the country in the last 30 days: No Close contact w/someone who was outside of country & ill: No - Past Medical History Allergies/Adverse Reactions: Allergies Allergy/AdvReac Type Severity Reaction Status Date / Time lisinopril Allergy Verified 05/18/18 18:41 Home Medications: Ambulatory Orders Glipizide [Glipizide ER] 10 mg PO DAILY 10/23/14 Montelukast Na [Singulair -] 10 mg PO HS 10/23/14 Sitagliptin Phosphate [Januvia -] 100 mg PO DAILY 10/23/14 Hydrochlorothiazide [Hctz -] 25 mg PO DAILY #30 tablet 08/15/16 Amlodipine Besylate [Norvasc -] 2.5 mg PO DAILY #30 tablet 05/19/18 Atorvastatin Ca [Lipitor] 40 mg PO HS #30 tablet 05/19/18 Diphenhydramine HCl [Benadryl Capsule -] 25 mg PO Q6H PRN capsule 05/19/18 Prednisone 10 mg PO DAILY #6 tablet 05/19/18 COPD: No Diabetes: Yes HTN: Yes Hypercholesterolemia: Yes - Surgical History Abdominal Surgery: No Cardiac Surgery: No GI Surgery: No - Immunization History Immunization Up to Date: No - Suicide/Smoking/Psychosocial Hx Smoking History: Never smoked Have you smoked in the past 12 months: No Hx Alcohol Use: No Drug/Substance Use Hx: No Substance Use Type: None Review of Systems - Review of Systems Able to Perform ROS?: Yes Is the patient limited Latvian proficient: No Constitutional: Yes: Weight Stable. No: Chills, Diaphoresis, Fever, Loss of Appetite, Weakness HEENTM: No: Blurred Vision, Recent change in vision, Double Vision, Nose Congestion, Throat Pain Respiratory: No: Cough, Orthopnea, Shortness of Breath Cardiac (ROS): Yes: See HPI, Syncope (pre-syncopal). No: Chest Pain, Edema, Irregular Heart Rate, Lightheadedness, Palpitations, Chest Tightness ABD/GI: No: Constipated, Diarrhea, Nausea, Poor Appetite, Poor Fluid Intake, Vomiting, Abdominal cramping : No: Burning, Dysuria, Frequency, Hematuria Musculoskeletal: No: Back Pain, Joint Pain, Muscle Weakness Integumentary: No: Rash Neurological: Yes: See HPI. No: Headache, Numbness, Paresthesia, Seizure, Weakness, Unsteady Gait, Ataxia, Dizziness Psychiatric: No: Sleep Pattern Change, Change in Appetite Endocrine: No: Increased Urine, Change in Weight Hematologic/Lymphatic: No: Anemia, Blood Clots, Easy Bleeding, Easy Bruising All Other Systems: Reviewed and Negative *Physical Exam - Physical Exam General Appearance: Yes: Nourished, Appropriately Dressed. No: Apparent Distress HEENT: positive: EOMI, LESLIE, Normal ENT Inspection, Normal Voice, Pharynx Normal , Hearing Grossly Normal. negative: Scleral Icterus (R), Scleral Icterus (L), Pharyngeal Erythema, Tonsillar Exudate, Tonsillar Erythema, Rhinorrhea Neck: positive: Trachea midline, Normal Thyroid, Supple. negative: Tender, Rigid, Lymphadenopathy (R), Lymphadenopathy (L) Respiratory/Chest: positive: Lungs Clear, Normal Breath Sounds. negative: Chest Tender, Respiratory Distress, Accessory Muscle Use, Crackles, Wheezing Cardiovascular: positive: Regular Rhythm, Regular Rate, S1, S2. negative: Edema , JVD, Murmur Vascular Pulses: Carotid (R): 4+, Carotid (L): 4+ Gastrointestinal/Abdominal: positive: Normal Bowel Sounds, Flat, Soft. negative : Tender, Organomegaly, Pulsatile Mass, Distended, Guarding, Rebound Rectal Exam: positive: deferred Lymphatic: negative: Adenopathy, Tenderness Musculoskeletal: positive: Normal Inspection. negative: CVA Tenderness Extremity: positive: Normal Capillary Refill, Normal Inspection, Normal Range of Motion, Pelvis Stable. negative: Tender Integumentary: positive: Normal Color, Dry, Warm. negative: Clammy, Diaphoresis , Rash Neurologic: positive: federal java developer II-XII NML intact, Fully Oriented, Alert, Normal Mood/ Affect, Normal Response, Motor Strength 5/5. negative: EOM Palsy, Facial Droop , Numbness, Sensory Deficit, Finger to Nose ED Treatment Course - LABORATORY CBC & Chemistry Diagram: 05/19/18 05:30 05/19/18 05:30 Medical Decision Making - Medical Decision Making Pt was seen at bedside, also will be seen by attending Dr. Gomez. Pt presenting after a pre-syncopal episode, with current complaints of light-headedness. Pt was seen at [facility] this morning, for complaints of tongue swelling/tingling, which she has experienced with lisinopril in the past. In the ER this AM, the pt was given tylenol, and started on 200 mg PO labetalol with urgent PCP follow- up tomorrow. Shortly after the pt was taken home by her son, she had a pre- syncopal episode (witnessed) in which she almost fell down the stairs in her home, had slurred speech, and seemed to be confused. The pt did not fall or hit her head. The pt ate only a salad today before her second arrival to the ED. Pt denies any recent fevers/chills, headache, vision changes, chest pain, palpitations, SOB, nausea/vomiting, abdominal pain, urinary symptoms, diarrhea/ constipation, or leg swelling. Pt afebrile, BP 99/63. Pt A/O x4. PE showed intact federal java developer, no facial droop, muscle strength and sensation intact. Heart and lung sounds clear. No abdominal or CVA tenderness. PE benign. Considering hypoperfusion 2/2 to hypoperfusion from new BP medication, general medication non-compliance vs TIA vs CVA vs hypo/hyperglycemia vs electrolyte imbalances vs infectious. More likely from administration of labetalol before pt left ED this AM, as pt had labwork done in the AM visit all WNL. Ordered work-up including non-contrast head CT (r/o CVA) and EKG. Provided 975 mg PO tylenol for improvement of mild headache. Will continue to reassess pt and monitor for symptomatic improvement. Bedside BGM - 261. 05/18/18 17:[address] Pt [address] for [address] scan. 05/18/18 17:04 [id number] CT/HEAD CT WITHOUT CONTRAST HISTORY PROVIDED: Altered mental status TECHNIQUE: Sequential axial images were obtained from the base of the skull to the vertex. There is no evidence of acute intracranial hemorrhage, mass lesions or infarctions. There is a mild degree of diffuse cerebral atrophy with sulcal widening and ventricular dilatation. Hypodense changes are noted within the periventricular white matter consistent with chronic, small vessel ischemia. IMPRESSION: No evidence of acute intracranial pathology. 05/18/18 17:12 Hospitalist team being paged for admission. Pt requires further monitoring as BP and blood sugar have not been controlled, pt having symptomatic pre-syncopal episodes. 05/18/18 17:15 Dr. Tate's team accepted pt for admission (entered later). Pt resting comfortably, vitals stable. 05/18/18 19:27 05/20/18 17:23 *DC/Admit/Observation/Transfer Diagnosis at time of Disposition: Pre-syncope - Discharge Dispostion Condition at time of disposition: Improved Decision to Admit order: Yes - Prescriptions - Referrals - Patient Instructions - Post Discharge Activity
[2018-05-18 15:18] VITALS: BMI 28.1
--- NOTE | 2018-05-18 15:46 | EKG ---
Test Reason : Blood Pressure : / mmHG Vent. Rate : 093 BPM Atrial Rate : 093 BPM P-R Int : 156 ms QRS Dur : 068 ms QT Int : 392 ms P-R-T Axes : 056 001 066 degrees QTc Int : 487 ms POOR DATA QUALITY, INTERPRETATION MAY BE ADVERSELY AFFECTED NORMAL SINUS RHYTHM POSSIBLE INFERIOR INFARCT (CITED ON OR BEFORE 18-MAY-2018) ABNORMAL ECG WHEN COMPARED WITH ECG OF 18-MAY-2018 09:49, NO SIGNIFICANT CHANGE WAS FOUND Confirmed by MONSTER MONTANEZ MD ([id number]) on 05/18/2018 3:46:09 PM Referred By: Confirmed By:MONSTER MONTANEZ MD
--- NOTE | 2018-05-18 16:00 | PDOC ---
Attending Attestation - HPI HPI: The patient is a 58 year old female, with a significant PMH of non-insulin dependent diabetes, HTN, and HLD, who presents to the emergency department with headache, weakness, and diffuse weakness secondary to a significant drop in her blood pressure earlier today. Patient was in the ER earlier this morning for chest pain and neck/tongue swelling. Upon discharge, patient was given Labetalol by Dr. Oliva to reduce her blood pressure (205/100), and her blood pressure dropped significantly as a result (under 100). Patient reports an associated diffuse headache, general weakness, and dizziness. As per her daughter, she was in and out of consciousness (doesnt recall), walking sideways , and slurring her speech, which prompted her visit back to the ED. The patient denies chest pain, shortness of breath, headache and dizziness. Denies fever, chills, nausea, vomit, diarrhea and constipation. Denies dysuria, frequency, urgency and hematuria. Allergies: NKA Past surgical history: None reported Social history: None reported PCP: Dr. Oliva 05/18/18 16:47 - Physicial Exam PE: GENERAL: +Patient looks weak-appearing. The patient is in no acute distress. HEAD: Normal with no signs of trauma. EYES: PERRLA, EOMI, sclera anicteric, conjunctiva clear. ENT: Ears normal, nares patent, oropharynx clear without exudates. Moist mucous membranes. NECK: Normal range of motion, supple without lymphadenopathy, JVD, or masses. LUNGS: Breath sounds equal, clear to auscultation bilaterally. No wheezes, and no crackles. HEART:Regular rate and rhythm, normal S1 and S2 without murmur, rub or gallop. ABDOMEN: Soft, nontender, normoactive bowel sounds. No guarding, no rebound. No masses palpable. EXTREMITIES: Normal range of motion, no edema. No clubbing or cyanosis. No erythema, or tenderness. NEUROLOGICAL: Cranial nerves II through XII grossly intact. Normal speech. No focal neurological deficits. MUSCULOSKELETAL: Back non-tender to palpation, no CVA tenderness SKIN: Warm, Dry, normal turgor, no rashes or lesions noted. 05/18/18 16:41 - Medical Decision Making Documentation prepared by FILIPE Riojas, acting as medical leader for Renee Gomez MD/. 05/18/18 16:41 <Cathy Hernandez - Last Filed: 05/18/18 16:47> - Resident Resident Name: Sofya Hunt - ED Attending Attestation I have performed the following: I have examined & evaluated the patient, The case was reviewed & discussed with the resident, I agree w/resident's findings & plan, Exceptions are as noted - Medical Decision Making 05/18/18 15:59 EKG - NSR rate of 93 bpm, axis nml, intervals nml, no st elevation or depression , t waves upright Pt pending labs Pt pending CT Will plan to place on observation clinical impression: syncopal event related to likely vasovagal episode <Renee Gomez - Last Filed: 05/21/18 18:00>
[2018-05-18] MEDS ORDERED: ACETAMINOPHEN 325 MG TABLET (FP) PO ONE (16:34)
[2018-05-18] MEDS ORDERED: ACETAMINOPHEN 325 MG TABLET (FP) ONE (17:37)
--- NOTE | 2018-05-18 18:39 | HP ---
CHIEF COMPLAINT: lightheadness, dizzy PCP: Dr. Shahnaz Cruz HISTORY OF PRESENT ILLNESS: Patient is a 58 year old female with a past medical history of non-insulin- dependent diabetes, hypertension and hyperlipidemia. Patient presented to the ED earlier this morning with c/o of new onset of neck, and tongue swelling that started at around 1 a.m. with intermittent left sided chest pain. She took Benadryl at around 2 a.m. with minimal relief and with no significant decrease in swelling of her anterior neck. She was evaluated in the ED for the neck swelling, and for c/o of left sided chest pain. She reports her neck pain as 8 /10. her chest pain was reported as a 0/10 scale. She was found to have no airway compromise and her troponin was negative. She was started on Labetelol 200mg for elevated BP and was discharged home. Patient returns this afternoon with a pre-syncopal episode. Patient was ambulating today with her family and was noted to be lethargic. She almost fell backwards while going down the stairs, but her son was with her and held her so that she did not hit the floor. Patient and son deny that patient hit her head. Patient denies chest pain, denies shortness of breath. She denies taking any new medications or eating new foods. She denies any trauma or exertional activity. Patient takes Lisinopril for a number of years but but has not taken it for a few months. ER course was notable for: (1) negative head CT (2) negative troponin (3) hypotensive Recent Travel: PAST MEDICAL HISTORY: [id number] diabetes, hypertension and hyperlipidemia. PAST SURGICAL HISTORY: Social History: Smoking: denies Alcohol:denies Drugs: denies Family History: Allergies No Known Allergies Allergy (Verified 05/18/18 09:06) HOME MEDICATIONS: Home Medications Medication Instructions Recorded Glipizide [Glipizide ER] 10 mg PO DAILY 10/23/14 Metformin HCl [Metformin HCl ER] 1,000 mg PO DAILY 10/23/14 Montelukast Na [Singulair -] 10 mg PO HS 10/23/14 Simvastatin [Zocor -] 20 mg PO DAILY 10/23/14 Sitagliptin Phosphate [Januvia -] 100 mg PO DAILY 10/23/14 Hydrochlorothiazide [Hctz -] 25 mg PO DAILY #30 tablet 08/15/16 Labetalol HCl [Normodyne -] 200 mg PO BID #30 tablet 05/18/18 PHYSICAL EXAMINATION Vital Signs - 24 hr 05/18/18 15:10 Temperature 97.8 F Pulse Rate 88 Respiratory 20 Rate Blood Pressure 99/63 O2 Sat by Pulse 95 Oximetry (%) GENERAL: Awake, alert, and fully oriented, in no acute distress. HEAD: Normal with no signs of trauma. mild anterior neck swelling, no angioedema or anaphylaxis, no airway involvement. Her tongue is not swollen, her uvula is at midline. EYES: Pupils equal, round and reactive to light, extraocular movements intact, sclera anicteric, conjunctiva clear. No lid lag. EARS, NOSE, THROAT: Ears normal, nares patent, oropharynx clear without exudates. Moist mucous membranes. NECK: mild anterior neck swelling. no airway compromise. will send for a tissue neck ct to evaluate LUNGS: Breath sounds equal, clear to auscultation bilaterally. No wheezes, and no crackles. No accessory muscle use. HEART: Regular rate and rhythm, tachycardia 108 on ekg ABDOMEN: Soft, nontender, not distended, normoactive bowel sounds, no guarding, no rebound, no masses. No hepatomegaly or splenomegaly. MUSCULOSKELETAL: Normal range of motion at all joints. No bony deformities or tenderness. No CVA tenderness. UPPER EXTREMITIES: No peripheral edema. LOWER EXTREMITIES: No calf tenderness. No peripheral edema. NEUROLOGICAL: Normal speech. Normal gait. PSYCHIATRIC: Cooperative. Good eye contact. Appropriate mood and affect. SKIN: Warm, dry, normal turgor, no rashes or lesions noted, normal capillary refill. Laboratory Results - last 24 hr 05/18/18 16:01 POC Glucometer [id number] ASSESSMENT/PLAN: Patient is a 58 year old female with a past medical history of non-insulin- dependent diabetes, hypertension and hyperlipidemia. Patient presented to the ED earlier this morning with c/o of new onset of neck, and tongue swelling that started at around 1 a.m. with intermittent left sided chest pain. She took Benadryl at around 2 a.m. with minimal relief and with no significant decrease in swelling of her anterior neck. She was evaluated in the ED for the neck swelling, and for c/o of left sided chest pain. She reports her neck pain as 8 /10. her chest pain was reported as a 0/10 scale. She was found to have no airway compromise and her troponin was negative. She was started on Labetalol 200mg for elevated BP and was discharged home. Patient returns this afternoon with a pre-syncopal episode. Likely orthostatic ? She was hypotensive on admission. Neuro: Presyncope episode, likely secondary to orthostatic hypotension vs. other cause Patient initially hypertensive on first visit the the ED, given Labetalol went home and had a near syncopal episode. returns with a BP of 90/60. will hold all antihypertensives at this time and hydrate overnight. She may be experiencing symptoms of hypoperfusion. Head CT negative Will order - troponins to rule out ACS - tele monitoring - hydrate with NS overnight - BP q 4 hours - physical therapy - orthostatics q 8 - fall precaution protocol - NS @ 75cc/hr - lipid panel Head/Neck: Neck edema, anterior/mild Unsure if patient had a reaction to a medication or to food. Her airway is intact, and her tongue is without edema. Patient states the swelling has significantly decreased from this morning. She was given Ibuprofen 600mg on initial ED visit. Will order soft tissue neck CT and evaluate Continue with Benadryl as needed She does not have any difficulty swallowing or speaking. Monitor closely Cardiology: Chest pain, now resolved. continue to trend troponins Hypertension, initially elevated this a.m., now hypotensive hold antihypertensive tonight, restart in a.m. if BP stable. In the meantime, will hydrate. Endocrine: Diabetes. Patient reports non compliance with metformin 2/2 to side effects of nausea Will continue other hypoglycemics. monitor bgms. Cimkr2w in a.m. fen Ns @ 75cc/hr monitor electrolytes diabetic diet prophy LOS <48 hours. monitor in observation. full code Visit type - Emergency Visit Emergency Visit: Yes ED Registration Date: 05/18/18 Care time: The patient presented to the Emergency Department on the above date and was hospitalized for further evaluation of their emergent condition. - New Patient This patient is new to me today: Yes Date on this admission: 05/18/18 - Critical Care Critical Care patient: No
[2018-05-18] MEDS ORDERED: SODIUM CHLORIDE 1,000 ML IV SCH (18:45)
[2018-05-18 20:32] VITALS: TEMP 98.1
[2018-05-18] MEDS ORDERED: diphenhydrAMINE HCL 25 MG CAPSULE (FP) PO PRN (21:28)
[2018-05-18] MEDS ORDERED: MONTELUKAST NA 10 MG TABLET PO SCH (22:00)
[2018-05-18] MEDS ORDERED: MONTELUKAST NA 10 MG TABLET ONE (22:24)
[2018-05-18] MEDS ORDERED: INSULIN (NOVOLOG) ASPART 100 UNITS/ML 10ML VIAL ONE (22:25)
[2018-05-18] MEDS: INSULIN SLIDING SCALE (NOVOLOG) 1 VIAL SQ SCH (22:37)
[2018-05-19] MEDS ORDERED: diphenhydrAMINE HCL 25 MG CAPSULE (FP) PO ONE (04:34)
[2018-05-19 06:21] LABS: BASO % 0.4 % (0-2.0); EOS % 2.7 % (0-4.5); HEMATOCRIT 38.5 % (32.4-45.2); HEMOGLOBIN 12.4 GM/dL (10.7-15.3); LYMPH % 52.7 % (8-40); MCH 26.9 pg (25.7-33.7); MCHC 32.1 g/dl (32.0-36.0); MEAN CELL VOLUME 83.7 fl (80-96); MEAN PLT VOLUME 8.6 fl (7.5-11.1); NEUT % 37.2 % (42.8-82.8); PLATELET COUNT 282 K/MM3 (134-434); RBC 4.59 M/mm3 (3.60-5.2); RDW 13.4 % (11.6-15.6); WHITE BLOOD COUNT 6.4 K/mm3 (4.0-10.0)
[2018-05-19 06:39] LABS: ALBUMIN 3.1 g/dl (3.4-5.0); ALK PHOS 70 U/L (45-117); ANION GAP 6 MMOL/L (8-16); BILIRUBIN,TOTAL 0.6 mg/dL (0.2-1); BLOOD UREA NITROGEN 20 mg/dL (7-18); CALCIUM 8.8 mg/dL (8.5-10.1); CHLORIDE 104 mmol/L (98-107); CHOLESTEROL 241 mg/dL (50-200); CO2 29 mmol/L (21-32); CREATININE 0.6 mg/dL (0.55-1.3); GLUCOSE,RANDOM 145 mg/dL (74-106); HDL CHOLESTEROL 42 mg/dL (40-60); MAGNESIUM 1.7 mg/dL (1.8-2.4); POTASSIUM 3.9 mmol/L (3.5-5.1); SGOT/AST 8 U/L (15-37); SGPT/ALT 13 U/L (13-61); SODIUM 139 mmol/L (136-145); TOT PROT 6.2 g/dl (6.4-8.2); TRIGLYCERIDES 232 mg/dL (0-150)
[2018-05-19] MEDS ORDERED: glipiZIDE-XL 10 MG TAB.ER.24 (FP) PO SCH (07:00)
[2018-05-19] MEDS: INSULIN SLIDING SCALE (NOVOLOG) 1 VIAL SQ SCH ×2 (07:00→13:28)
[2018-05-19] MEDS ORDERED: sitaGLIPtin PHOSPHATE 100 MG TABLET (FP) PO SCH (07:00)
--- NOTE | 2018-05-19 08:57 | HOSP ---
Physical Examination Vital Signs: Vital Signs Temperature 98.1 F 05/19/18 06:50 Pulse Rate 64 05/19/18 06:50 Respiratory Rate 16 05/19/18 06:50 Blood Pressure 169/71 05/19/18 06:50 O2 Sat by Pulse Oximetry (%) 97 05/19/18 06:50 Neck: Yes: Other Respiratory: Yes: WNL Labs: CBC, BMP 05/19/18 05:30 05/19/18 05:30 Hospitalist Encounter Assessment: symphonm coverage for dr. lisa rubin. patient stating that her anterior neck swelling is more swollen this morning no airway compromise, no difficulty swallowing, had breakfast w/o difficulty. denies tongue swelling. exam stable vitals signs, oxygen stable anterior neck swelling same as yesterday, but patient states she notices its getting worse ENT consult, will place order give prednisone 60mg x 1 now soft tissue neck xray done and pending read [facility] @ [facility] [phone]
[2018-05-19] MEDS ORDERED: PT OWN MED DRAWER 7, Y5N ONE ×6 (09:49→14:18)
[2018-05-19] MEDS ORDERED: predniSONE 20 MG TABLET (UD) PO ONE (10:00)
[2018-05-19] MEDS ORDERED: HYDROCHLOROTHIAZIDE 25 MG TABLET (FP) PO SCH (10:00)
[2018-05-19] MEDS ORDERED: predniSONE 20 MG TABLET (UD) ONE (10:17)
[2018-05-19] MEDS ORDERED: INSULIN (NOVOLOG) ASPART 100 UNITS/ML 10ML VIAL ONE ×3 (13:11→15:45)
--- NOTE | 2018-05-19 13:35 | PN ---
Physical Exam: SUBJECTIVE: Patient seen and examined OBJECTIVE: Vital Signs Period Temp Pulse Resp BP Sys/Aguilar Pulse Ox Last 24 Hr 97.8 F-98.1 F 64-98 16-20 99-177/63-89 95-97 GENERAL: The patient is awake, alert, and fully oriented, in no acute distress. HEAD: Normal with no signs of trauma. EYES: PERRL, extraocular movements intact, sclera anicteric, conjunctiva clear. No ptosis. ENT: Ears normal, nares patent, oropharynx clear without exudates, moist mucous membranes. NECK: Trachea midline, full range of motion, supple. LUNGS: Breath sounds equal, clear to auscultation bilaterally, no wheezes, no crackles, no accessory muscle use. HEART: Regular rate and rhythm, S1, S2 without murmur, rub or gallop. ABDOMEN: Soft, nontender, nondistended, normoactive bowel sounds, no guarding, no rebound, no hepatosplenomegaly, no masses. EXTREMITIES: 2+ pulses, warm, well-perfused, no edema. NEUROLOGICAL: Cranial nerves II through XII grossly intact. Normal speech, gait not observed. PSYCH: Normal mood, normal affect. SKIN: Warm, dry, normal turgor, no rashes or lesions noted Laboratory Results - last 24 hr 05/18/18 05/18/18 05/18/18 16:01 18:25 22:05 WBC RBC Hgb Hct MCV MCH MCHC RDW Plt Count MPV Absolute Neuts (auto) Neutrophils % Lymphocytes % Monocytes % Eosinophils % Basophils % Nucleated RBC % Sodium Potassium Chloride Carbon Dioxide Anion Gap BUN Creatinine Creat Clearance w eGFR POC Glucometer [phone] Random Glucose Hemoglobin A1c % Calcium Magnesium Total Bilirubin AST ALT Alkaline Phosphatase Troponin I < 0.02 Total Protein Albumin Triglycerides Cholesterol Total LDL Cholesterol HDL Cholesterol 05/18/18 05/19/18 05/19/18 23:20 05:30 05:30 WBC 6.4 RBC 4.59 Hgb 12.4 Hct 38.5 MCV 83.7 MCH 26.9 MCHC 32.1 RDW 13.4 Plt Count 282 MPV 8.6 Absolute Neuts (auto) 2.4 Neutrophils % 37.2 L D Lymphocytes % 52.7 H D Monocytes % 7.0 Eosinophils % 2.7 Basophils % 0.4 Nucleated RBC % 0 Sodium 139 Potassium 3.9 Chloride 104 Carbon Dioxide 29 Anion Gap 6 L BUN 20 H Creatinine 0.6 Creat Clearance w eGFR > 60 POC Glucometer Random Glucose 145 H Hemoglobin A1c % Calcium 8.8 Magnesium 1.7 L Total Bilirubin 0.6 AST 8 L ALT 13 Alkaline Phosphatase 70 Troponin I < 0.02 Total Protein 6.2 L Albumin 3.1 L Triglycerides 232 H Cholesterol 241 H Total LDL Cholesterol 152 H HDL Cholesterol 42 05/19/18 05:30 WBC RBC Hgb Hct MCV MCH MCHC RDW Plt Count MPV Absolute Neuts (auto) Neutrophils % Lymphocytes % Monocytes % Eosinophils % Basophils % Nucleated RBC % Sodium Potassium Chloride Carbon Dioxide Anion Gap BUN Creatinine Creat Clearance w eGFR POC Glucometer Random Glucose Hemoglobin A1c % 9.1 H Calcium Magnesium Total Bilirubin AST ALT Alkaline Phosphatase Troponin I Total Protein Albumin Triglycerides Cholesterol Total LDL Cholesterol HDL Cholesterol Active Medications Generic Name Dose Route Start Last Admin Trade Name Freq PRN Reason Stop Dose Admin Amlodipine Besylate 2.5 mg 05/19/18 13:34 Norvasc - PO 05/19/18 13:35 ONCE ONE Atorvastatin Calcium 10 mg 05/19/18 22:00 Lipitor - PO HS GREGORY Diphenhydramine HCl 25 mg 05/18/18 21:28 05/19/18 04:37 Benadryl - PO 25 mg Q6H PRN Administration FOR ITCHING Glipizide 10 mg 05/19/18 07:00 05/19/18 10:21 Glucotrol Xl - PO 10 mg DAILY@0700 GREGORY Administration Hydrochlorothiazide 25 mg 05/19/18 10:00 05/19/18 10:23 Hctz - PO 25 mg DAILY GREGORY Administration Insulin Aspart 1 vial 05/18/18 22:00 05/19/18 13:28 Novolog Vial Sliding Scale - SQ 4 units ACHS GREGORY Administration Protocol Montelukast Sodium 10 mg 05/18/18 22:00 05/18/18 22:37 Singulair - PO 10 mg HS GREGORY Administration Sitagliptin Phosphate 100 mg 05/19/18 07:00 05/19/18 10:22 Januvia - PO 100 mg DAILY@0700 [facility] Administration ASSESSMENT/PLAN:
[2018-05-19] MEDS ORDERED: MAGNESIUM OXIDE 400 MG TABLET (FP) PO ONE (14:12)
[2018-05-19] MEDS ORDERED: amLODIPine BESYLATE 2.5 MG TABLET (FP) PO ONE (14:15)
[2018-05-19] MEDS ORDERED: MAGNESIUM OXIDE 400 MG TABLET (FP) ONE (14:42)
[2018-05-19] MEDS ORDERED: amLODIPine BESYLATE 5 MG TABLET (FP) ONE (14:42)
[2018-05-19 14:55] VITALS: BP 178/99; PULSE 115
--- NOTE | 2018-05-19 15:13 | DS ---
Physical Exam: SUBJECTIVE: Patient seen and examined at the bedside. She denies any difficulty swallowing, denies any shortness of breath. no chest pain patient and daughter at bedside. discussed with them the need for PCP follow up, ENT follow up. OBJECTIVE: discharge home neck edema improved, will give 3 days of prednisone and then discontinue She is to follow up with ENT outpatient Vital Signs Period Temp Pulse Resp BP Sys/Aguilar Pulse Ox Last 24 Hr 98.1 F-98.1 F 64-115 16-20 134-178/67-99 96-97 PHYSICAL EXAM GENERAL: Awake, alert, and fully oriented, in no acute distress. HEAD: Normal with no signs of trauma. IMPROVED anterior neck swelling, no angioedema or anaphylaxis, no airway involvement. Her tongue is not swollen, her uvula is at midline. GIVEN PREDNISONE 60MG, WITH 2 DAY TAPER. EYES: Pupils equal, round and reactive to light, extraocular movements intact, sclera anicteric, conjunctiva clear. No lid lag. EARS, NOSE, THROAT: Ears normal, nares patent, oropharynx clear without exudates. Moist mucous membranes. NECK: mild anterior neck swelling. no airway compromise. will send for a tissue neck ct to evaluate LUNGS: Breath sounds equal, clear to auscultation bilaterally. No wheezes, and no crackles. No accessory muscle use. HEART: Regular rate and rhythm, tachycardia 108 on ekg ABDOMEN: Soft, nontender, not distended, normoactive bowel sounds, no guarding, no rebound, no masses. No hepatomegaly or splenomegaly. MUSCULOSKELETAL: Normal range of motion at all joints. No bony deformities or tenderness. No CVA tenderness. UPPER EXTREMITIES: No peripheral edema. LOWER EXTREMITIES: No calf tenderness. No peripheral edema. NEUROLOGICAL: Normal speech. Normal gait. PSYCHIATRIC: Cooperative. Good eye contact. Appropriate mood and affect. SKIN: Warm, dry, normal turgor, no rashes or lesions noted, normal capillary refill. LABS Laboratory Results - last 24 hr 05/18/18 05/18/18 05/18/18 16:01 18:25 22:05 WBC RBC Hgb Hct MCV MCH MCHC RDW Plt Count MPV Absolute Neuts (auto) Neutrophils % Lymphocytes % Monocytes % Eosinophils % Basophils % Nucleated RBC % Sodium Potassium Chloride Carbon Dioxide Anion Gap BUN Creatinine Creat Clearance w eGFR POC Glucometer 261.35881 [phone] Random Glucose Hemoglobin A1c % Calcium Magnesium Total Bilirubin AST ALT Alkaline Phosphatase Troponin I < 0.02 Total Protein Albumin Triglycerides Cholesterol Total LDL Cholesterol HDL Cholesterol 05/18/18 05/19/18 05/19/18 23:20 05:30 05:30 WBC 6.4 RBC 4.59 Hgb 12.4 Hct 38.5 MCV 83.7 MCH 26.9 MCHC 32.1 RDW 13.4 Plt Count 282 MPV 8.6 Absolute Neuts (auto) 2.4 Neutrophils % 37.2 L D Lymphocytes % 52.7 H D Monocytes % 7.0 Eosinophils % 2.7 Basophils % 0.4 Nucleated RBC % 0 Sodium 139 Potassium 3.9 Chloride 104 Carbon Dioxide 29 Anion Gap 6 L BUN 20 H Creatinine 0.6 Creat Clearance w eGFR > 60 POC Glucometer Random Glucose 145 H Hemoglobin A1c % Calcium 8.8 Magnesium 1.7 L Total Bilirubin 0.6 AST 8 L ALT 13 Alkaline Phosphatase 70 Troponin I < 0.02 Total Protein 6.2 L Albumin 3.1 L Triglycerides 232 H Cholesterol 241 H Total LDL Cholesterol 152 H HDL Cholesterol 42 05/19/18 05:30 WBC RBC Hgb Hct MCV MCH MCHC RDW Plt Count MPV Absolute Neuts (auto) Neutrophils % Lymphocytes % Monocytes % Eosinophils % Basophils % Nucleated RBC % Sodium Potassium Chloride Carbon Dioxide Anion Gap BUN Creatinine Creat Clearance w eGFR POC Glucometer Random Glucose Hemoglobin A1c % 9.1 H Calcium Magnesium Total Bilirubin AST ALT Alkaline Phosphatase Troponin I Total Protein Albumin Triglycerides Cholesterol Total LDL Cholesterol HDL Cholesterol HOSPITAL COURSE: Patient is a 58 year old female with a past medical history of non-insulin- dependent diabetes, hypertension and hyperlipidemia. Patient presented to the ED earlier yesterday with c/o of new onset of neck, and tongue swelling that started at around 1 a.m. with intermittent left sided chest pain. She took Benadryl at around 2 a.m. with minimal relief and with no significant decrease in swelling of her anterior neck. She was evaluated in the ED for the neck swelling, and for c/o of left sided chest pain. She reports her neck pain as 8 /10. her chest pain was reported as a 0/10 scale. She was found to have no airway compromise and her troponin was negative. She was started on Labetalol 200mg for elevated BP and was discharged home. Patient returns this afternoon with a pre-syncopal episode. Likely orthostatic ? She was hypotensive on admission. Patient was placed on observation. PROBLEM LIST BY HOSPITAL COURSE: Neuro: Presyncope episode, likely secondary to orthostatic hypotension vs. other cause - resolved Patient initially hypertensive on first visit the the ED, given Labetalol went home and had a near syncopal episode. returns with a BP of 90/60. Hydrated overnight and BP recovered. restarted on HCTZ 25mg and prescribed Norvasc 2.5mg daily for bp control. Patient not to take the Labetalol. She is allergic to lisinopril. she will need to see her PCP outpatient for follow up. At this time her BP is more stable with outpatient follow up. she may need further medication adjustment. Head CT negative Orthostatics negative Head/Neck: Neck edema, anterior/mild Unsure if patient had a reaction to a medication or to food. Her airway is intact, and her tongue is without edema. Patient reported that the edema is slightly increased. On exam, It was noted that it was unchanged from yesterday, but will treat with prednisone taper x 3 days. She will follow up with ENT outpatient. Cardiology: Chest pain, resolved. negative troponins Hypertension, then hypotensive in the ED. She was hydrated overnight and her cardiac medications were held. BP recovered and now on hctz 25mg and Norvasc 2.5mg daily HLD, elevated. started on lipitor 40mg daily Endocrine: Diabetes. Patient reports non compliance with metformin 2/2 to side effects of nausea She is on Januvia and Glipizide. Her hmga1c is elevated 9.1%. She will see her PCP. She reports taking a long acting insulin (Bagalsar) 12 units in a.m. Date of Admission:05/18/18 Date of Discharge: 05/19/18 Minutes to complete discharge: 60 Discharge Summary Reason For Visit: PRE-SYNCOPE Current Active Problems Pre-syncope (Acute) Condition: Improved - Instructions Diet, Activity, Other Instructions: Mrs Aden: You were placed under observation at [facility] for neck swelling and for pre syncope. Here are our recommendations #Presyncope episode. This may be due to your blood pressure dropping to quickly. Discontinue the Labetelol. continue the HCTZ 12.5 (you take this one at home) and Norvasc 2.5mg daily (new prescription). Please follow up with your primary care doctor so that your pressure can be monitored closely. We recommend that you see him in one week. #High Cholesterol: your cholesterol was high and we increased your Lipitor to 40mg. A new prescription has been called into your pharmacy. Elevated cholesterol is a risk factor for strokes. It is important that you control your cholesterol levels. #Neck swelling We are unsure why you had some swelling of your neck. We gave you one dose of Prednisone 60mg today 05/29/18. Please take Prednisone 40mg tomorrow 05/20/2018, then Prednisone 20mg on 2018 and then discontinue taking the Prednisone. We have referred you to an ENT (Ear Nose Throat) doctor for further evaluation. XRAY OF NECK WAS NORMAL* * #High Blood Pressure: You came back to the ER and noticed that your blood pressure was low. We have started you back on your cardiac medications with some changes as follows: STOP taking the Labetalol 200mg START Norvasc 2.5mg daily in the morning CONTINUE HCTZ (hydrochlorothiazide) 25mg daily #Diabetes. Continue taking the Glipizide, Januvia and the Long acting insulin. Keep track of your blood sugars at home. You may need to start on a short acting insulin as your Niiic1a was 9.1. Please discuss this with your primary care doctor. NEW MEDICATIONS: Prednisone 60mg once daily (THIS MEDICATION WAS GIVEN TO YOU IN THE HOSPITAL 02/25 AT 9A.M) Prednisone 40mg once daily on 05/20/2018 (for neck swelling) Prednisone 20mg once daily on 05/21/2018 - this is your last dose of prednisone Norvasc 2.5mg daily (for blood pressure control) STOP TAKING: Labetalol 200mg Referrals: Bre Cruz MD [Primary Care Provider] - 1 Week Jaspal Portillo MD [Staff Physician] - (ENT doctor. please call for an appointment) Disposition: HOME - Home Medications Comprehensive Discharge Medication List: Ambulatory Orders Glipizide [Glipizide ER] 10 mg PO DAILY 10/23/14 Metformin HCl [Metformin HCl ER] 1,000 mg PO DAILY 10/23/14 Montelukast Na [Singulair -] 10 mg PO HS 10/23/14 Simvastatin [Zocor -] 20 mg PO DAILY 10/23/14 Sitagliptin Phosphate [Januvia -] 100 mg PO DAILY 10/23/14 Hydrochlorothiazide [Hctz -] 25 mg PO DAILY #30 tablet 08/15/16 Labetalol HCl [Normodyne -] 200 mg PO BID #30 tablet 05/18/18 This patient is new to me today: No Emergency Visit: Yes ED Registration Date: 05/18/18 Care time: The patient presented to the Emergency Department on the above date and was hospitalized for further evaluation of their emergent condition. Critical Care patient: No - Discharge Referral Referred to [facility] Med P.C.: No
[2018-05-19] MEDS ORDERED: ATORVASTATIN CA 10 MG TABLET (FP) PO SCH (22:00)
== END 2018-05-19 16:00 | disposition home or self-care (01) | DRG 204 ==
LOC: JER 14:47 → INTOOBSV 17:33 → JERBED 17:33
PROVIDERS: ADMIT Internal Medicine; ATTEND Nurse Practitioner Family
PROC: 3E013VG Introduction of Insulin into Subcutaneous Tissue, Percutaneous Approach (ICD-10-PCS; principal; 2018-05-18)
PROC: 3E0337Z Introduction of Electrolytic and Water Balance Substance into Peripheral Vein, Percutaneous Approach (ICD-10-PCS; 2018-05-18)
DX: R55 Syncope and collapse (principal); E11.9 Type 2 diabetes mellitus without complications; I10 Essential (primary) hypertension; E78.5 Hyperlipidemia, unspecified; Z79.84 Long term (current) use of oral hypoglycemic drugs; Z91.14 Patient's other noncompliance with medication regimen; R21 Rash and other nonspecific skin eruption
CPT/HCPCS: 36415; 70360-TC-FY; 70450-TC; 80053; 80061; 82962; 83036; 83721; 83735; 84484; 85025; 93005; 93010; 96372; 99285-25; G0378; J7030